=== PATIENT | female | born 1960 | race Caucasian/White ===

== ENCOUNTER 2017-04-29 12:23 | Emergency (ER) | payer SELFPAY ==
[2017-04-29] MEDS ORDERED: MORPHINE SULFATE INJ 10 MG/ML VIAL IV ONE (12:42)
--- NOTE | 2017-04-29 12:42 | ED.PDOC ---
History of Present Illness - General Chief Complaint: Lower Extremity Injury Stated Complaint: right lower leg pain after hitting wave Time Seen by Provider: 04/29/17 12:40 Source: patient Additional Information: SLIPPED GETTING ON [employer]. FELT HER LOWER LEG "POP". C/O PAIN - History of Present Illness Timing/Duration: other - [employer] Severity: moderate Improving Factors: nothing Worsening Factors: other - MOVEMENT Associated Symptoms: denies symptoms Allergies/Adverse Reactions: Allergies Penicillins Allergy (Unknown, Verified 04/29/17 12:35) Aspirin Allergy (Verified 04/29/17 12:35) Home Medications: Ambulatory Orders Acetaminophen W/ Codeine [Tylenol W/ CODEINE #3] 1 ea PO Q6HR PRN #24 04/29/17 Mometasone Furoate-Formoterol [Dulera 200-5 Mcg/Act] 1 aer IN DAILY 04/29/17 Review of Systems - Review of Systems Constitutional: Denies: chills, fever EENTM: States: no symptoms reported Respiratory: States: no symptoms reported Cardiology: States: no symptoms reported Gastrointestinal/Abdominal: Denies: nausea, vomiting Genitourinary: States: no symptoms reported Musculoskeletal: States: other - SWELLING AND PAIN TO R LOWER LEG. Skin: States: other - ECCHYMOSIS Neurological: Denies: numbness, paresthesia, tingling Endocrine: States: no symptoms reported Hematologic/Lymphatic: States: no symptoms reported Past Medical History (General) - Patient Medical History Hx of COPD: Yes - Social History Hx Tobacco Use: Yes - QUIT 3 YEARS AGO Hx Alcohol Use: No Family Medical History - Family History Grandparents Family History: Unknown Physical Exam - Physical Exam General Appearance: Alert, Other - UNCOMFORTABLE APPEARING Eye Exam: bilateral normal Ears, Nose, Throat: hearing grossly normal, normal ENT inspection Neck: non-tender, full range of motion, supple Respiratory: lungs clear, normal breath sounds Cardiovascular/Chest: regular rate, rhythm, no murmur Peripheral Pulses: dorsalis pedis,right: 1+, posterior tibialis,right: 1+ Gastrointestinal/Abdominal: non tender, soft, no organomegaly Back Exam: normal inspection, no CVA tenderness Extremity: no pedal edema, other - MILD SWELLING, ECCHYMOSIS AND MOD TTP TO R MID LOWER LEG PRETIBIAL AREA, NVI Neurologic: no motor/sensory deficits, normal mood/affect, oriented x 3 Skin Exam: normal color, warm/dry Lymphatic: no adenopathy Progress - Progress Progress: 04/29/17 14:01 D/W DR SANFORD'S OFFICE. THEY WILL HAVE HIM REVIEW FILMS AND CALL BACK. PT WOULD PREFER TO STAY HERE. 04/29/17 14:11 DR [facility]FORD'S OFFICE CALLED BACK. HE CANNOT DO SURGERY HERE. PT PREFERS TO GO TO [place] OR [place]. WILL PLACE IN LONG POSTERIOR WITH STIRRUP. WARNINGS GIVEN REDNESS, SWELLING, PAIN, PARESTHESIAS, OR ANY OTHER CONCERNS. PT WILL KEEP ICED AND ELEVATED. Departure - Departure Clinical Impression: Right tibial fracture Qualifiers: Encounter type: initial encounter Tibia location: shaft Fracture type: closed Fracture morphology: spiral Fracture alignment: displaced Qualified Code(s): S82.241A - Displaced spiral fracture of shaft of right tibia, initial encounter for closed fracture Time of Disposition: 14:15 Disposition: Discharge to Home or Self Care Condition: Fair Departure Forms: ED Discharge - Pt. Copy, Patient Portal Self Enrollment Instructions: Shinbone Fracture Prescriptions: Acetaminophen W/ Codeine [Tylenol W/ CODEINE #3] 1 ea PO Q6HR PRN #24 PRN Reason: Pain Home Medications: Ambulatory Orders Acetaminophen W/ Codeine [Tylenol W/ CODEINE #3] 1 ea PO Q6HR PRN #24 04/29/17 Mometasone Furoate-Formoterol [Dulera 200-5 Mcg/Act] 1 aer IN DAILY 04/29/17
[2017-04-29] MEDS ORDERED: MORPHINE SULFATE INJ 10 MG/ML VIAL ONE (12:44)
[2017-04-29] MEDS ORDERED: ONDANSETRON INJ 4 MG/2 ML VIAL ONE (12:44)
[2017-04-29] MEDS ORDERED: ONDANSETRON INJ 4 MG/2 ML VIAL IV ONE (13:00)
--- NOTE | 2017-04-29 13:25 | RAD ---
EXAM DESCRIPTION: Tibia/Fibula,Right CLINICAL HISTORY: deformity COMPARISON: None. TECHNIQUE: AP/lateral right FINDINGS: The exam reveals a comminuted oblique fracture the midshaft of the right tibia. There is one cortical width posterior displacement of the distal fracture fragment. One cortical width of medial displacement of the distal fracture fragment is also observed. There is a simple transverse fracture of the junction of the middle and distal thirds of the fibula. There is one half shaft width of medial displacement of the distal fracture fragment. No significant angulation is detected. IMPRESSION: Fractures of the mid tibia and fibula. Electronically signed by: Edwin Croft MD 04/29/2017 1:23 PM CDT
[2017-04-29] MEDS ORDERED: KETOROLAC TROMETHAMINE INJ 30 MG/ML VIAL ONE (13:30)
[2017-04-29] MEDS ORDERED: fentaNYL CITRATE INJ 50 MCG/ML AMP ONE (13:34)
[2017-04-29] MEDS ORDERED: fentaNYL CITRATE INJ 50 MCG/ML AMP IV ONE (13:34)
[2017-04-29] MEDS ORDERED: PROMETHAZINE HCL INJ 12.5 MG in SODIUM CHLORIDE 0.9% 50ML 50 ML IVPB ONE (13:57)
[2017-04-29] MEDS ORDERED: SODIUM CHLORIDE 0.9% 50ML 50 ML ONE (13:59)
[2017-04-29] MEDS ORDERED: PROMETHAZINE HCL INJ 25 MG/ML VIAL ONE (13:59)
[2017-04-29 15:32] VITALS: BP 136/80; TEMP 98; O2SAT 96
== END 2017-04-29 15:34 | disposition home or self-care (01) ==
LOC: ER 12:23
DX: S82.241A Displaced spiral fracture of shaft of right tibia, initial encounter for closed fracture (principal); Z87.891 Personal history of nicotine dependence; J44.9 Chronic obstructive pulmonary disease, unspecified; Z88.0 Allergy status to penicillin; Z88.6 Allergy status to analgesic agent; W19.XXXA Unspecified fall, initial encounter; Y93.19 Activity, other involving water and watercraft
CPT/HCPCS: 73590; A4216; J1885; J2270; J2405; J2550; J3010